=== PATIENT | female | born 1990 | race Caucasian/White ===

== ENCOUNTER 2017-09-28 10:19 | Emergency (ER) | payer OTHER ==
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
[2017-09-28] MEDS ORDERED: Ondansetron ODT TAB* 4 MG PO ONE (11:40)
[2017-09-28] MEDS ORDERED: Naproxen TAB* 250 MG PO ONE (13:19)
[2017-09-28 14:10] VITALS: BP 112/75
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
== END 2017-09-28 14:10 | disposition home or self-care (01) ==
LOC: ED 10:19
DX: S06.0X9A Concussion with loss of consciousness of unspecified duration, initial encounter (principal); S16.1XXA Strain of muscle, fascia and tendon at neck level, initial encounter; V49.00XA Driver injured in collision with unspecified motor vehicles in nontraffic accident, initial encounter; Y92.481 Parking lot as the place of occurrence of the external cause
CPT/HCPCS: 70450; 72125; 99282; A9270-GY